=== PATIENT | female | born 1960 | race Caucasian/White ===

== ENCOUNTER 2024-10-26 10:10 | Day surgery (SDC) | payer BC ==
[~2024-10-26 10:10] MED LIST: Sodium Chloride 0.9% 10 ML Syringe FLUSH PRN; Sodium Chloride 0.9% 2.5 ML Syringe FLUSH PRN; Sodium Chloride 0.9% 20 ML SDV IV PRN
[2024-10-26] MEDS: Lactated Ringers 1,000 ML IV SCH (10:51)
[2024-10-26] MEDS ORDERED: propofoL 500 MG/50 ML 50 ML ONE (11:06)
[2024-10-26] MEDS ORDERED: Lidocaine 2% 5 ML SDV ONE (11:06)
[2024-10-26] MEDS ORDERED: ceFAZolin 2 GM in Sodium Chloride 0.9% 50 ML IV ONE (11:38)
[2024-10-26] MEDS ORDERED: ceFAZolin 2 GM Vial ONE (12:30)
[2024-10-26] MEDS ORDERED: Ondansetron 4 MG/2 ML SDV ONE (13:23)
[2024-10-26 13:57] VITALS: BP 127/77; PULSE 82
[2024-10-26] MEDS ORDERED: HYDROmorphone 1 MG/ML Syringe IVPUSH ONE (14:19)
[2024-10-26] MEDS: Ketorolac 30 MG/ML SDV IVPUSH ONE (14:24)
[2024-10-26] MEDS: HYDROmorphone 2 MG/ML Syringe IVPUSH ONE (14:36)
[2024-10-26] MEDS: Scopalamine 1mg/3day Transdermal Patch TRDERM PRN (14:42)
== END 2024-10-26 15:30 | disposition home or self-care (01) ==
LOC: MW.SDS 10:10
PROVIDERS: ATTEND Surgery
DX: D12.3 Benign neoplasm of transverse colon (principal); K21.9 Gastro-esophageal reflux disease without esophagitis; E78.00 Pure hypercholesterolemia, unspecified; Z79.899 Other long term (current) drug therapy; Z88.5 Allergy status to narcotic agent; K59.09 Other constipation
CPT/HCPCS: 43239; 45380; 45385; A9270; J0131; J0690; J1171; J1885; J2405; J2704; J7120; 00813; J3490